=== PATIENT | female | born 1980 | race Caucasian/White ===

== ENCOUNTER 2025-05-08 07:36 | Emergency (ER) | payer MEDICAID, SELFPAY ==
[2025-05-08 07:45] VITALS: BP 120/79; PULSE 66; RESP 21; TEMP 36.8; O2SAT 100; BMI 47.7
[2025-05-08 07:50] VITALS: PULSE 89
--- NOTE | 2025-05-08 07:50 | EKG_ITS ---
[facility] Test Date: 2025-05-08 Pat Name: EMMETT SIEGLE Department: Room: - Gender: Female Health Navigator: : 1980 Requested By: Burton Laguna Order Number: [id number] Reading MD: Burton Laguna Measurements Intervals [place] Rate: 58 P: 74 MO: 160 QRS: 56 QRSD: 87 T: 51 QT: 417 QTc: 410 Interpretive Statements SINUS BRADYCARDIA WITH OCCASIONAL ECTOPIC PREMATURE COMPLEXES SEPTAL MYOCARDIAL INFARCTION , PROBABLY OLD [40+ ms Q WAVE IN V1/V2] No previous ECG available for comparison /[id number]/[email or web address]/[id number].pdf
--- NOTE | 2025-05-08 07:51 | XR_ITS ---
Examination: Tibia-Fibula, left, 2 views Technique: Tibia-fibula AP lateral 2 views Date and time of exam: May 08, 2025, 11:42 a.m. INDICATIONS: Left lower leg pain beginning 2 weeks ago. FINDINGS: No fracture or dislocation. No periosteal new bone formation No opaque foreign body IMPRESSION: Negative for osteomyelitis No fracture No foreign body
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
[2025-05-08] MEDS: SODIUM CHLORIDE 0.9% 1000 ML 1,000 ML 100 ML IV (08:31)
[2025-05-08] MEDS: MORPHINE SULF INJ 4 MG/ML VIAL IVP ×2 (08:31→15:04)
[2025-05-08 08:32] LABS: Basophils # (Auto) 0.1 Thou/mm3 (0.0-0.2); Basophils % (Auto) 1 % (0-2.5); Eosinophils # (Auto) 0.4 Thou/mm3 (0.0-0.5); Eosinophils % (Auto) 7 % (0-10); Hematocrit 34.3 % (36.0-46.0); Hemoglobin 11.1 g/dL (12.0-16.0); Immature Granulocytes Auto 0.14 Thou/mm3 (0.00-0.00); Lymphocytes # (Auto) 1.6 Thou/mm3 (1.0-4.8); Lymphocytes % (Auto) 28 % (10-50); Mean Corpuscular HGB Conc 32.4 g/dl (31.0-37.0); Mean Corpuscular Hemoglobin 29.2 pg (25.0-35.0); Mean Corpuscular Volume 90 fL (80-100); Monocytes # (Auto) 0.6 Thou/mm3 (0.0-0.8); Monocytes % (Auto) 10 % (0-12); Neutrophils # (Auto) 2.9 Thou/mm3 (1.8-7.7); Neutrophils % (Auto) 51 % (37-80); Nucleated Red Blood Cell # 0.00 Thou/mm3 (0.00-0.00); Nucleated Red Blood Cell % 0 /100 WBC (0); Platelet Count 452 Thou/mm3 (140-440); RDW Standard Deviation 44.5 fL (36.4-46.3); Red Blood Count 3.80 Miln/mm3 (4.00-5.20); White Blood Count 5.6 Thou/mm3 (3.6-11.0)
[2025-05-08] MEDS: KETOROLAC INJ 30 MG/ML VIAL 15 MG IVP (08:32)
[2025-05-08] MEDS: ONDANSETRON INJ 2 MG/ML INJ 2 ML 4 MG IVP ×2 (08:32→15:04)
[2025-05-08 08:47] LABS: Alanine Aminotransferase 24 U/L (10-49); Albumin, Serum 4.1 gm/dL (3.5-5.0); Albumin/Globulin Ratio 1.6 (1.2-2.2); Alkaline Phosphatase 139 U/L (46-116); Anion Gap 9 (7-16); Aspartate Amino Transferase 23 U/L (0-34); BUN/Creatinine Ratio 16 Ratio (12-20); Bilirubin,Total 0.3 mg/dL (0.3-1.2); Blood Urea Nitrogen 11 mg/dL (9-23); Calcium 8.8 mg/dL (8.3-10.6); Calcium (Corrected) 8.8 mg/dL (8.5-10.1); Carbon Dioxide 23.6 mMol/L (20.0-31.0); Chloride 109 mMol/L (98-107); Creatine Kinase 30 U/L (34-171); Creatinine (Component) 0.7 mg/dL (0.6-1.3); Estimated Creatinine Clearance 134.8 mL/min (>60); Globulin 2.6 gm/dL (2.3-3.5); Glucose 108 mg/dL (74-106); Osmolality,Calculated 283 (275-295); Potassium 4.2 mMol/L (3.4-5.1); Sodium 142 mMol/L (136-145); Total Protein 6.7 gm/dL (5.7-8.2); eGFR > 60 See Note
[2025-05-08 09:10] LABS: INR 1.0 (0.9-1.3); Prothrombin Time 10.3 Seconds (9.0-12.2)
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
[2025-05-08 10:06] VITALS: BP 116/70; PULSE 60; RESP 16; TEMP 36.7; O2SAT 96
[2025-05-08 10:40] LABS: HCG,Qualitative Serum Negative
[2025-05-08 13:04] VITALS: BP 134/79; PULSE 61; RESP 18; TEMP 36.8; O2SAT 99
[2025-05-08 14:31] VITALS: BP 159/88; PULSE 74; RESP 15; TEMP 37.1; O2SAT 99
== END 2025-05-08 17:09 | disposition home or self-care (01) ==
PROVIDERS: Emergency Provider Family Medicine; PCP Hospitalist
DX: M51.360 Other intervertebral disc degeneration, lumbar region with discogenic back pain only (principal); M48.061 Spinal stenosis, lumbar region without neurogenic claudication; R00.1 Bradycardia, unspecified; I49.40 Unspecified premature depolarization; M79.662 Pain in left lower leg; M25.552 Pain in left hip; M51.370 Other intervertebral disc degeneration, lumbosacral region with discogenic back pain only; S32.89XD Fracture of other parts of pelvis, subsequent encounter for fracture with routine healing; V89.2XXD Person injured in unspecified motor-vehicle accident, traffic, subsequent encounter; Z96.642 Presence of left artificial hip joint
CPT/HCPCS: 36415; 72131; 73501; 73560; 73590; 80053; 81001; 81025; 82550; 84703; 85025; 85610; 93005; 93971; 96374; 96375; 96376; 99285; J1885; J2270; J2405; J7030